=== PATIENT | male | born 1990 | race African-American/Black ===

== ENCOUNTER 2018-09-22 14:22 | Emergency (ER) | payer SELFPAY ==
[~2018-09-22] VITALS: Ht 175.3 cm; Wt 59.0 kg
[2018-09-22 15:50] VITALS: BP 98/53
[2018-09-22] MEDS ORDERED: CEPH-264 PO (16:29)
--- NOTE | 2018-09-22 16:29 | PHYS DOC ---
Past Medical History Past Medical History: No Pertinent History Past Surgical History: No Surgical History Alcohol Use: Rarely Drug Use: Marijuana Adult General Chief Complaint Chief Complaint: INSECT BITE HPI HPI Patient is a 28 year old male who presents with 3 dime-sized abscesses to the back of his neck on the right side for 1 week. Patient denies any pain, fever, nausea, vomiting, dizziness. Patient states that they had opened and drained but has since come back. Review of Systems Review of Systems Constitutional: Denies fever or chills [] Eyes: Denies change in visual acuity, redness, or eye pain [] HENT: Denies nasal congestion or sore throat [] Respiratory: Denies cough or shortness of breath [] Cardiovascular: No additional information not addressed in HPI [] GI: Denies abdominal pain, nausea, vomiting, bloody stools or diarrhea [] : Denies dysuria or hematuria [] Musculoskeletal: Denies back pain or joint pain [] Integument: 3 abscesses to back of neck. Denies rash or skin lesions [] Neurologic: Denies headache, focal weakness or sensory changes [] Endocrine: Denies polyuria or polydipsia [] All other systems were reviewed and found to be within normal limits, except as documented in this note. Allergies Allergies Allergies Coded Allergies Type Severity Reaction Last Updated Verified No Known Drug Allergies 09/22/18 No Physical Exam Physical Exam Constitutional: Well developed, well nourished, no acute distress, non-toxic appearance. [] HENT: Normocephalic, atraumatic, bilateral external ears normal, oropharynx moist, no oral exudates, nose normal. [] Eyes: PERRLA, EOMI, conjunctiva normal, no discharge. [] Neck: Normal range of motion, no tenderness, supple, no stridor. [] Cardiovascular:Heart rate regular rhythm, no murmur [] Lungs & Thorax: Bilateral breath sounds clear to auscultation [] Abdomen: Bowel sounds normal, soft, no tenderness, no masses, no pulsatile masses. [] Skin: Warm, dry, no erythema, no rash. 3 dime-sized abscess with hard centers, reddened.[] Back: No tenderness, no CVA tenderness. [] Extremities: No tenderness, no cyanosis, no clubbing, ROM intact, no edema. [] Neurologic: Alert and oriented X 3, normal motor function, normal sensory function, no focal deficits noted. [] Psychologic: Affect normal, judgement normal, mood normal. [] Current Patient Data Vital Signs Vital Signs Date Time Temp Pulse Resp B/P (MAP) Pulse Ox O2 Delivery O2 Flow Rate FiO2 09/22/18 15:50 98.8 50 12 98/53 (68) 98 Room Air 98.8 EKG EKG [] Radiology/Procedures Radiology/Procedures [] Course & Med Decision Making Course & Med Decision Making Patient is a 28 year old male who presents with 3 dime-sized abscesses to the back of his neck on the right side for 1 week. Patient denies any pain, fever, nausea, vomiting, dizziness. Patient states that they had opened and drained but has since come back. 3 abscesses have hard centers. Patient is told to apply a heating pad to the area 3 times a day as he can to help them open up. I will give him a prescription for Keflex. Patient to return in 3-4 days if the abscess is are worsening and not getting better. Dragon Disclaimer Dragon Disclaimer This electronic medical record was generated, in whole or in part, using a voice recognition dictation system. Departure Departure Impression: Primary Impression: Abscess Disposition: 01 HOME, SELF-CARE Condition: STABLE Referrals: NO PCP (PCP) Patient Instructions: Abscess Additional Instructions: Follow-up with primary care or return here in 3-4 days if worsening symptoms. Take medication as prescribed. Use heating pad to the areas many times a day as you can. Scripts Cephalexin (KEFLEX) 500 Mg Capsule 1 CAP PO TID, #30 CAP Prov: JEFFERY LEÓN APRN 09/22/18 JEFFERY LEÓN APRN Sep 22, 2018 16:29
== END 2018-09-22 16:42 | disposition home or self-care (01) ==
LOC: ER 14:22
DX: L02.11 Cutaneous abscess of neck (principal)
CPT/HCPCS: 99283